=== PATIENT | female | born 1970 | race Caucasian/White ===

== ENCOUNTER → 2017-01-13 | Outpatient (CLI) | payer OTHER | LOC: CT 08:33 | DX: R91.1 Solitary pulmonary nodule (principal); R10.30 Lower abdominal pain, unspecified; R06.02 Shortness of breath; R59.9 Enlarged lymph nodes, unspecified; R63.4 Abnormal weight loss; R31.9 Hematuria, unspecified; R07.9 Chest pain, unspecified; R13.10 Dysphagia, unspecified; R61 Generalized hyperhidrosis | CPT/HCPCS: 70491; 71260; J7050; Q9962 ==